=== PATIENT | male | born 1955 | race Caucasian/White ===

== ENCOUNTER 2016-06-23 08:05 | Emergency (ER) | payer MEDICARE, OTHER | END 2016-06-23 09:43 | disposition home or self-care (01) | LOC: ER 08:05 | DX: M47.813 Spondylosis without myelopathy or radiculopathy, cervicothoracic region (principal); M62.838 Other muscle spasm; H26.9 Unspecified cataract; F41.9 Anxiety disorder, unspecified; J44.9 Chronic obstructive pulmonary disease, unspecified; K21.9 Gastro-esophageal reflux disease without esophagitis; F17.210 Nicotine dependence, cigarettes, uncomplicated ==